=== PATIENT | female | born 1970 | race Caucasian/White ===

== ENCOUNTER 2017-05-04 00:10 | Emergency (ER) | payer MEDICAID, OTHER ==
[~2017-05-04] VITALS: Ht 152.4 cm; Wt 57.6 kg
[~2017-05-04 00:10] MED LIST: HYDROCORTISONE
[2017-05-04 00:21] VITALS: Ht 152.4 cm; Wt 57.6 kg
[2017-05-04] MEDS ORDERED: morphine 2 MG INJ IV STA (02:06)
[2017-05-04] MEDS ORDERED: ONDANSETRON 4 MG INJ IV STA (02:06)
--- NOTE | 2017-05-04 02:54 | RADRPT ---
PROCEDURE: XR Chest. CLINICAL INDICATION: Cough. TECHNIQUE: Single frontal view of the chest. COMPARISON: None. FINDINGS: The cardiomediastinal silhouette is within normal limits. The lungs are clear. No signs of pleural f luid or pneumothorax are seen. The osseous structures and soft tissues are unremarkable. IMPRESSION: No evidence for active cardiopulmonary disease. RPTAT: [facility] Physician Jakob Date Time Electronically viewed and signed by Physician Jakob on 05/04/2017 02:53 RS/
[2017-05-04 02:55] LABS: ABNORMAL IP MESSAGE 1; BASOPHIL # 0.1 10^3/ul (0.0-0.1); BASOPHILS % 0.5 % (0.0-2.0); EOSINOPHILS # 0.1 10^3/ul (0.0-0.5); EOSINOPHILS % 0.9 % (0.0-7.0); HEMATOCRIT 39.6 % (37.0-47.0); HEMOGLOBIN 12.7 g/dl (12.0-16.0); LYMPHOCYTES # 7.9 10^3/ul (0.8-2.9); MEAN CORPUSCULAR HEMOGLOBIN 28.5 pg (29.0-33.0); MEAN CORPUSCULAR HGB CONC 32.1 g/dl (32.0-37.0); MEAN PLATELET VOLUME 9.8 fl (7.4-10.4); MONOCYTE # 1.2 10^3/ul (0.3-0.9); MONOCYTES % 7.5 % (0.0-11.0); NEUTROPHIL # 6.1 10^3/ul (1.6-7.5); NEUTROPHILS % 39.4 % (39.0-77.0); NUCLEATED RED BLOOD CELLS # 0.3 10^3/ul (0.0-0.0); NUCLEATED RED BLOOD CELLS% 1.8 /100WBC (0.0-0.0); PLATELET COUNT 363 10^3/UL (140-415); RED BLOOD COUNT 4.45 10^6/ul (4.20-5.40); RED CELL DISTRIBUTION WIDTH 14.3 % (11.5-14.5); WHITE BLOOD COUNT 15.4 10^3/ul (4.8-10.8)
[2017-05-04 03:05] LABS: POSITIVE DIFF @See below
[2017-05-04 03:17] LABS: ALBUMIN 3.6 g/dl (3.3-4.9); ALBUMIN/GLOBULIN RATIO 1.12; CALCIUM 8.7 mg/dl (8.4-10.2); CREATININE 0.58 mg/dl (0.44-1.00); POTASSIUM 4.2 mmol/L (3.5-5.1); TOTAL PROTEIN 6.8 g/dl (6.1-8.1)
[2017-05-04 03:19] LABS: ADD UMIC NO; UR AMORPHOUS CRYSTAL FEW /HPF (NONE SEEN); UR ASCORBIC ACID NEGATIVE (NEGATIVE); UR BILIRUBIN (Dip) NEGATIVE (NEGATIVE); UR BLOOD (Dip) NEGATIVE (NEGATIVE); UR CLARITY SLIGHTLY CLOUDY (CLEAR); UR COLOR YELLOW (YELLOW); UR GLUCOSE (Dip) NEGATIVE (NEGATIVE); UR KETONES (Dip) NEGATIVE (NEGATIVE); UR LEUKOCYTE ESTERASE (Dip) NEGATIVE Leu/ul (NEGATIVE); UR NITRITE (Dip) NEGATIVE (NEGATIVE); UR RBC 0 /HPF (0-5); UR SPECIFIC GRAVITY (Dip) 1.014 (1.003-1.030); UR TOTAL PROTEIN (Dip) NEGATIVE (NEGATIVE); UR UROBILINOGEN (Dip) NEGATIVE (NEGATIVE)
[2017-05-04] MEDS ORDERED: morphine 2 MG INJ IV ONE (03:30)
--- NOTE | 2017-05-04 04:02 | RADRPT ---
PROCEDURE: CT ABDOMEN/PELVIS WITHOUT CONTRAST CLINICAL INDICATION: 47-year-old female with abdominal pain. TECHNIQUE: The study was performed utilizing a [employer] VCT 64-slice CT scanner. Direct axia l sections were obtained through the abdomen and pelvis without the use of intravenous contrast mate rial. Sagittal and coronal reformations were obtained. One or more of the following dose reduction t echniques were utilized: automated exposure control, adjustment of the mA and/or kV according to pat ient's size and/or the use of iterative reconstruction technique. DICOM images are available. The im ages were reviewed on a PACS workstation. CTD/vol = 7.3 mGy; Total Exam DLP = 379.1 mGy-cm. COMPARISON: CT abdomen/pelvis July 02, 2007. FINDINGS: There is a small subpleural nodule within the lateral basal segment of the right lower lobe on axial image 3-13 measuring 6 x 6 mm with central cavitation. There is minimal bibasilar subsegmental atel ectasis. There is no evidence for significant pleural effusion. The liver has a normal size and co ntour without focal areas of abnormal density. No intrahepatic nor extrahepatic biliary ductal dilat ation is seen. The gallbladder demonstrates no wall thickening nor pericholecystic fluid. No biliary stones are evident. The pancreas is without areas of abnormal attenuation. The spleen is identifie d and has a normal size without abnormal density. The adrenal glands are unremarkable. The right kid chastity is without abnormal density or obstruction. There is a punctate nonobstructing mid left renal ca lculus. There is no evidence for hydroureteronephrosis. The urinary bladder contains urine. There is a minimal umbilical hernia with an opening of 7 x 7 mm with a nonspecific calcification in this region measuring approximately 7 x 5 x 5 mm. There are mildly dilated fluid-filled loops of small chris wel without obstruction. The appendix is difficult to visualize but is without abnormal thickening o r periappendiceal inflammatory changes. The uterus is anteflexed. There is trace pelvic free fluid. Phleboliths are seen within the pelvis. The aortoiliac vessels are without aneurysmal dilatation. Th e osseous structures are intact. IMPRESSION: 1. Mildly dilated fluid-filled loops of small bowel without obstruction. This may represent an ente ritis. Clinical correlation is necessary. 2. Punctate nonobstructing left renal calculus. 3. No CT evidence for appendicitis. 4. Trace pelvic free fluid. 5. Small right lower lobe lateral basal subpleural 6 x 6 mm nodule with central cavitation. .Eliseo Gil MD, Date Time Electronically viewed and signed by .Eliseo Gil MD, on 05/04/2017 04:02 .Darlene/
[2017-05-04] MEDS ORDERED: ONDANSETRON (ODT) 4 MG TAB ODT STA (04:49)
[2017-05-04] MEDS ORDERED: ACET500C5 PO (04:49)
[2017-05-04] MEDS ORDERED: ONDA4TAB14 PO (04:50)
[2017-05-04] MEDS ORDERED: BENZ100C70 PO (04:51)
[2017-05-04 04:59] VITALS: BP 105/62; PULSE 62; RESP 16; TEMP 98.5
--- NOTE | 2017-05-04 08:40 | ERD ---
ER Documentation Chief Complaint Chief Complaint PT IN WITH C/O "R FLANK PAIN AND VOMITING X 3 DAYS" HPI Patient is 47-year-old female with a past medical history of nephrolithiasis, chronic pain, opiate dependence, presents to the ED for concerns of right flank pain 3 days. Patient states that her right flank pain radiates into her right lower abdomen prepubic region. Patient does report seeing blood in her urine yesterday. Patient does admit to dysuria. Patient states today she felt nauseous and proximally 5 episodes of nonbloody, nonbilious vomiting. Patient reports having a fever of 101 earlier today. Patient states that she took Tylenol for symptoms. Patient also reports a productive cough for the last 8 days. Patient is a smoker. Denies any rhinorrhea, sore throat, ear pain. Patient denies any recent travel. ROS All systems reviewed and are negative except as per history of present illness. Medications Home Meds Active Scripts Benzonatate* (Tessalon Perle*) 100 Mg Capsule, 100 MG PO Q8H Y for COUGH, #20 CAP Prov:SARA GONZALEZ PA-C 05/04/17 Ondansetron (Ondansetron Odt) 4 Mg Tab.rapdis, 4 MG PO Q6H Y for NAUSEA AND/OR VOMITING, #10 TAB Prov:SARA GONZALEZ PA-C 05/04/17 Acetaminophen* (Tylophen*) 500 Mg Capsule, 1 CAP PO Q6H Y for PAIN AND OR ELEVATED TEMP, #20 CAP Prov:SARA GONZALEZ PA-C 05/04/17 Reported Medications [Hydrocortisone] No Conflict Check 06/17/11 Allergies Allergies: Coded Allergies: prochlorperazine (Verified Allergy, Unknown, 05/04/17) Uncoded Allergies: PENICILLINS,MORPHINE ,TORADOL,NSAID (Allergy, Unknown, 05/04/17) PMhx/Soc History of Surgery: Yes (LITHOTRIPSY,KIDNEY STENT,ECTOPIC PREG.) Anesthesia Reaction: No Hx Neurological Disorder: No Hx Respiratory Disorders: No Hx Cardiac Disorders: No Hx Psychiatric Problems: No Hx Miscellaneous Medical Probl: No Hx Alcohol Use: No Hx Substance Use: No Hx Tobacco Use: Yes Smoking Status: Current every day smoker Physical Exam Vitals Vital Signs Date Time Temp Pulse Resp B/P Pulse Ox O2 Delivery O2 Flow Rate FiO2 05/04/17 04:59 98.5 62 16 105/62 99 05/04/17 00:21 98.5 105 20 110/89 99 Physical Exam GENERAL: Well-developed, well-nourished female. Appears in no acute distress. HEAD: Normocephalic, atraumatic. EYES: Pupils are equally reactive bilaterally. EOMs grossly intact. No conjunctival erythema. ENT: Moist mucous membranes. No uvula deviation. No kissing tonsils. NECK: Supple. No meningismus. Normal range of motion of the neck. LUNG: Clear to auscultation bilaterally. No rhonchi, wheezing, rales or coarse breath sounds. HEART: Regular rate and rhythm. No murmurs, rubs or gallops. ABDOMEN: No scars, ecchymosis or rashes noted. Soft and nondistended. Tender to palpation over the suprapubic region. Positive bowel sounds in all four quadrants. No rebound tenderness, no guarding. (-) McBurney's point tenderness. R sided CVA tenderness. EXTREMITIES: Equal pulses bilaterally. No peripheral clubbing, cyanosis or edema. No unilateral leg swelling. NEUROLOGIC: Alert and oriented. Moving all four extremities without any difficulty. Normal speech. Steady gait. SKIN: Normal color. Warm and dry. No rashes or lesions. Result Diagram: 05/04/1722905/04/17 023 Results 24 hrs Laboratory Tests Test 05/04/17 02:30 White Blood Count 15.410^3/ul Red Blood Count 4.4510^6/ul Hemoglobin 12.7g/dl Hematocrit 39.6% Mean Corpuscular Volume 89.0fl Mean Corpuscular Hemoglobin 28.5pg Mean Corpuscular Hemoglobin Concent 32.1g/dl Red Cell Distribution Width 14.3% Platelet Count 21353^3/UL Mean Platelet Volume 9.8fl Neutrophils % 39.4% Lymphocytes % 51.0% Monocytes % 7.5% Eosinophils % 0.9% Basophils % 0.5% Nucleated Red Blood Cells % 1.8/100WBC Neutrophils # 6.110^3/ul Lymphocytes # 7.910^3/ul Monocytes # 1.210^3/ul Eosinophils # 0.110^3/ul Basophils # 0.110^3/ul Nucleated Red Blood Cells # 0.310^3/ul Urine Color YELLOW Urine Clarity SLIGHTLY CLOUDY Urine pH 8.0 Urine Specific [place] 1.014 Urine Ketones NEGATIVEmg/dL Urine Nitrite NEGATIVEmg/dL Urine Bilirubin NEGATIVEmg/dL Urine Urobilinogen NEGATIVEmg/dL Urine Leukocyte Esterase NEGATIVELeu/ul Urine Microscopic RBC 0/HPF Urine Microscopic WBC 0/HPF Urine Amorphous Crystals FEW/HPF Urine Hemoglobin NEGATIVEmg/dL Urine Glucose NEGATIVEmg/dL Urine Total Protein NEGATIVEmg/dl Sodium Level 140mmol/L Potassium Level 4.2mmol/L Chloride Level 109mmol/L Carbon Dioxide Level 23mmol/L Anion Gap 12 Blood Urea Nitrogen 16mg/dl Creatinine 0.58mg/dl Glucose Level 83mg/dl Calcium Level 8.7mg/dl Total Bilirubin 0.0mg/dl Direct Bilirubin 0.00mg/dl Indirect Bilirubin 0.0mg/dl Aspartate Amino Transf (AST/SGOT) 41IU/L Alanine Aminotransferase (ALT/SGPT) 51IU/L Alkaline Phosphatase 95IU/L Total Protein 6.8g/dl Albumin 3.6g/dl Globulin 3.20g/dl Albumin/Globulin Ratio 1.12 Lipase 266U/L Current Medications Medications (Trade) Dose Ordered Sig/Maximus Route PRN Reason Start Time Stop Time Status Last Admin Dose Admin Morphine Sulfate (morphine) 2 mg ONCE STAT IV 05/04/17 02:06 05/04/17 02:08 DC 05/04/17 02:35 Ondansetron HCl (Zofran Inj) 4 mg ONCE STAT IV 05/04/17 02:06 05/04/17 02:08 DC 05/04/17 02:35 Morphine Sulfate (morphine) 2 mg ONCE ONCE IV 05/04/17 03:30 05/04/17 03:31 DC 05/04/17 03:26 Ondansetron HCl (Zofran Odt) 4 mg ONCE STAT ODT 05/04/17 04:49 05/04/17 04:55 DC Procedures/MDM ED COURSE: The patient was stable throughout ED course. I kept the patient and/or family informed of laboratory and diagnostic imaging results throughout the ED course. DIAGNOSTIC IMAGING: Read by radiologist. Patient: SYLVIA OCHOA : 1970 Age: 47 Sex: F MR #: [id number] DOS: 05/04/17 0206 Ordering MD: SARA GONZALEZ PA-C Location: [facility] Room/Bed: PROCEDURE: CT ABDOMEN/PELVIS WITHOUT CONTRAST CLINICAL INDICATION: 47-year-old female with abdominal pain. TECHNIQUE: The study was performed utilizing a [employer] VCT 64-slice CT scanner. Direct axial sections were obtained through the abdomen and pelvis without the use of intravenous contrast material. Sagittal and coronal reformations were obtained. One or more of the following dose reduction techniques were utilized: automated exposure control, adjustment of the mA and/ or kV according to patient's size and/or the use of iterative reconstruction technique. DICOM images are available. The images were reviewed on a PACS workstation. CTD/vol = 7.3 mGy; Total Exam DLP = 379.1 mGy-cm. COMPARISON: CT abdomen/pelvis July 02, 2007. FINDINGS: There is a small subpleural nodule within the lateral basal segment of the right lower lobe on axial image 3-13 measuring 6 x 6 mm with central cavitation. There is minimal bibasilar subsegmental atelectasis. There is no evidence for significant pleural effusion. The liver has a normal size and contour without focal areas of abnormal density. No intrahepatic nor extrahepatic biliary ductal dilatation is seen. The gallbladder demonstrates no wall thickening nor pericholecystic fluid. No biliary stones are evident. The pancreas is without areas of abnormal attenuation. The spleen is identified and has a normal size without abnormal density. The adrenal glands are unremarkable. The right kidney is without abnormal density or obstruction. There is a punctate nonobstructing mid left renal calculus. There is no evidence for hydroureteronephrosis. The urinary bladder contains urine. There is a minimal umbilical hernia with an opening of 7 x 7 mm with a nonspecific calcification in this region measuring approximately 7 x 5 x 5 mm. There are mildly dilated fluid- filled loops of small bowel without obstruction. The appendix is difficult to visualize but is without abnormal thickening or periappendiceal inflammatory changes. The uterus is anteflexed. There is trace pelvic free fluid. Phleboliths are seen within the pelvis. The aortoiliac vessels are without aneurysmal dilatation. The osseous structures are intact. IMPRESSION: 1. Mildly dilated fluid-filled loops of small bowel without obstruction. This may represent an enteritis. Clinical correlation is necessary. 2. Punctate nonobstructing left renal calculus. 3. No CT evidence for appendicitis. 4. Trace pelvic free fluid. 5. Small right lower lobe lateral basal subpleural 6 x 6 mm nodule with central cavitation. .Eliseo Gil MD, Date Time Electronically viewed and signed by .Eliseo Gil MD, on 05/04/2017 04:02 .M/ CC: SARA GONZALEZ PA-C Patient: SYLVIA OCHOA : 1970 Age: 47 Sex: F MR #: [id number] DOS: 05/04/17 0206 Ordering MD: SARA GONZALEZ PA-C Location: [facility] Room/Bed: PROCEDURE: XR Chest. CLINICAL INDICATION: Cough. TECHNIQUE: Single frontal view of the chest. COMPARISON: None. FINDINGS: The cardiomediastinal silhouette is within normal limits. The lungs are clear. No signs of pleural fluid or pneumothorax are seen. The osseous structures and soft tissues are unremarkable. IMPRESSION: No evidence for active cardiopulmonary disease. RPTAT: [facility] Physician Jakob Date Time Electronically viewed and signed by Physician Jakob on 05/04/2017 02:53 RS/ CC: SARA GONZALEZ PA-C MEDICATIONS GIVEN: IV fluids, Zofran, morphine. Patient tolerated medication well with no adverse reactions MEDICAL DECISION MAKING: This is a 47-year-old female with history of nephrolithiasis, chronic pain, opiate dependence, presents to the ED for concerns of right-sided flank pain and a cough. Patient describes having right-sided flank pain for last 3 days. Patient reports vomiting which started today. She has had a productive cough for the last 8 days. Vital signs were reviewed. Patient was afebrile. Patient was not hypoxic. Blood work was obtained. Patient was noted to have a white count of 15.4. No evidence of severe anemia. CMP showed no evidence of electrolyte abnormalities, severe acidosis, alkalosis , renal failure, or liver disease. Lipase showed no evidence of acute pancreatitis. UA showed no evidence of acute infection or hematuria. Urine test was negative. Chest x-ray was unremarkable. CT abdomen and pelvis showed 1. Mildly dilated fluid-filled loops of small bowel without obstruction. This may represent an enteritis. Clinical correlation is necessary. 2. Punctate nonobstructing left renal calculus. 3. No CT evidence for appendicitis. 4. Trace pelvic free fluid. 5. Small right lower lobe lateral basal subpleural 6 x 6 mm nodule with central cavitation. She was given IV fluids, Zofran and morphine. Patient repeatedly asking for additional doses of narcotics immediately after receiving the medication.. Patient was noted to be fast asleep on numerous occasions by myself and nursing staff. I explained to the patient that I am unable to provide her with additional doses given her history of chronic pain and opiate dependence. At this time, patient presentation is most consistent with enteritis and cough. Discussed case with my supervising physician, Dr. Laguerre, who agreed that patient did not require antibiotics at this time. Low suspicion for pneumonia, pneumothorax, nephrolithiasis, septic stone, UTI, pyelonephritis, appendicitis, SBO, bowel perforation, pancreatitis. I discussed the patient's findings of nodule in the right lower lobe with her. Patient was advised to follow-up with her primary care physician for further management of this nodule. Smoking cessation discussed. I reviewed the patient's MOISE report which shows patient went to [facility] 04[facility] for similar concerns. PRESCRIPTIONS: Tylenol, Zofran DISCHARGE: At this time, patient is stable for discharge and outpatient management. Patient was given a copy of all imaging studies and blood work obtained today. I have instructed the patient to follow-up with his/her primary care physician in 1-2 days. If symptoms persist, patient may need to see a specialist for further examinations and testing. I have instructed the patient to promptly return to the ER at any time for any new or worsening symptoms including increased increased pain, fever, nausea, vomiting, urinary changes or weakness. The patient and/or family expressed understanding of and agreement with this plan. All questions were answered. Home care instructions were provided. Disclaimer: Inadvertent spelling and grammatical errors are likely due to EHR/ dictation software use and do not reflect on the overall quality of patient care. Also, please note that the electronic time recorded on this note does not necessarily reflect the actual time of the patient encounter. Departure Diagnosis: Primary Impression: Enteritis Additional Impression: Cough Condition: Stable Patient Instructions: Cough, Chronic, Uncertain Cause, (Adult), Gastroenteritis , Viral (6Y-Adult) Referrals: [facility] YOU HAVE RECEIVED A MEDICAL SCREENING EXAM AND THE RESULTS INDICATE THAT YOU DO NOT HAVE A CONDITION THAT REQUIRES URGENT TREATMENT IN THE EMERGENCY DEPARTMENT. FURTHER EVALUATION AND TREATMENT OF YOUR CONDITION CAN WAIT UNTIL YOU ARE SEEN IN YOUR DOCTORS OFFICE WITHIN THE NEXT 1-2 DAYS. IT IS YOUR RESPONSIBILITY TO MAKE AN APPOINTMENT FOR FOLOW-UP CARE. IF YOU HAVE A PRIMARY DOCTOR --you should call your primary doctor and schedule an appointment IF YOU DO NOT HAVE A PRIMARY DOCTOR YOU CAN CALL OUR PHYSICIAN REFERRAL HOTLINE AT IF YOU CAN NOT AFFORD TO SEE A PHYSICIAN YOU CAN CHOSE FROM THE FOLLOWING [facility] [address] [facility]. [facility] [address] [facility] [facility] [address] [facility] [facility] [address] [facility] [facility] [address] [facility]. [facility] [address] [facility]. [facility] YOU HAVE RECEIVED A MEDICAL SCREENING EXAM AND THE RESULTS INDICATE THAT YOU DO NOT HAVE A CONDITION THAT REQUIRES URGENT TREATMENT IN THE EMERGENCY DEPARTMENT. FURTHER EVALUATION AND TREATMENT OF YOUR CONDITION CAN WAIT UNTIL YOU ARE SEEN IN YOUR DOCTORS OFFICE WITHIN THE NEXT 1-2 DAYS. IT IS YOUR RESPONSIBILITY TO MAKE AN APPOINTMENT FOR FOLOW-UP CARE. IF YOU HAVE A PRIMARY DOCTOR --you should call your primary doctor and schedule and appointment IF YOU DO NOT HAVE A PRIMARY DOCTOR YOU CAN CALL OUR PHYSICIAN REFERRAL HOTLINE AT . IF YOU CAN NOT AFFORD TO SEE A PHYSICIAN YOU CAN CHOSE FROM THE FOLLOWING [facility] INSTITUTIONS: [facility] [address] [place] [address] [facility] [address] [place] [address] [facility] [address] [place] [address] Additional Instructions: Call your primary care doctor TOMORROW for an appointment during the next 1-2 days.See the doctor sooner or return here if your condition worsens before your appointment time. SARA GONZALEZ PA-C May 04, 2017 08:28
== END 2017-05-04 05:00 | disposition home or self-care (01) ==
LOC: FTE 00:10
DX: K52.9 Noninfective gastroenteritis and colitis, unspecified (principal); R05 Cough; F17.210 Nicotine dependence, cigarettes, uncomplicated
CPT/HCPCS: 36415; 71010; 74176; 80053; 81001; 83690; 85025; 96374; 96375; 96376; J2270; J2405; Z7502; 81003

== ENCOUNTER 2018-02-15 01:46 | Emergency (ER) | END 2018-02-15 04:16 | disposition left against medical advice (07) ==

== ENCOUNTER 2018-12-05 22:20 | Emergency (ER) | payer MEDICAID ==
[~2018-12-05] VITALS: Ht 182.9 cm; Wt 48.7 kg
[~2018-12-05 22:20] MED LIST changes: +ACET500C5 PO; +BENZ-6 PO; +CLIN300C10 PO; +ONDA4TAB14 PO; +TRAM50TA2 PO
[2018-12-05 22:26] VITALS: Ht 182.9 cm; Wt 48.7 kg
[2018-12-05] MEDS ORDERED: SOD CHLORIDE 0.9% 1,000 ML IV STA (22:58)
[2018-12-05] MEDS ORDERED: LIDOCAINE 1% (MDV) 20 ML INJ INJ ONE (23:00)
[2018-12-05] MEDS ORDERED: ONDANSETRON 4 MG INJ IV ONE (23:00)
[2018-12-05] MEDS ORDERED: morphine 4 MG/ML VIAL IV ONE (23:00)
[2018-12-05] MEDS ORDERED: DIPHTH/TET/ACEL PERTUSS (ADULT) 0.5 ML VIAL IM* ONE (23:00)
[2018-12-05] MEDS ORDERED: HYDROmorphONE 0.5 MG/0.5 ML SYG IV STA (23:03)
[2018-12-06] MEDS ORDERED: LORAZEPAM 2 MG INJ IV ONE
[2018-12-06] MEDS ORDERED: IOHEXOL 300MG/ML 150 ML BTL ONE (02:12)
[2018-12-06] MEDS ORDERED: SOD CHLORIDE 0.9% 100 ML ONE (02:12)
[2018-12-06 02:17] VITALS: BP 125/78; PULSE 88; RESP 16
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
== END 2018-12-06 03:41 | disposition left against medical advice (07) ==
LOC: E/R 22:20
DX: S02.2XXA Fracture of nasal bones, initial encounter for closed fracture (principal); S01.511A Laceration without foreign body of lip, initial encounter; F17.210 Nicotine dependence, cigarettes, uncomplicated; R04.0 Epistaxis; R07.81 Pleurodynia; Y04.8XXA Assault by other bodily force, initial encounter; Y99.9 Unspecified external cause status; Z76.5 Malingerer [conscious simulation]; Z23 Encounter for immunization
CPT/HCPCS: 36415; 70450; 70486; 71260; 74177; 80053; 83690; 85025; 85610; 85730; 90471; 90715; 96374; 96375; J1170; J2060; J2405; J7030; Q9967; Z7502; Z7610

== ENCOUNTER 2019-02-12 15:34 | Emergency (ER) | payer MEDICAID, OTHER ==
[~2019-02-12] VITALS: Ht 152.4 cm; Wt 49.8 kg
[~2019-02-12 15:34] MED LIST changes: +METH500T PO
[2019-02-12 16:03] VITALS: Ht 152.4 cm; Wt 49.8 kg
[2019-02-12] MEDS ORDERED: ACETAMINOPHEN 325 MG TAB PO ONE (17:00)
[2019-02-12] MEDS ORDERED: METHOCARBAMOL 750 MG TAB PO ONE (17:00)
[2019-02-12 18:50] VITALS: BP 117/75; PULSE 88; RESP 17
== END 2019-02-12 18:50 | disposition home or self-care (01) ==
LOC: FTE 15:34
DX: M47.892 Other spondylosis, cervical region (principal); M25.512 Pain in left shoulder; M54.5 Low back pain; Z87.891 Personal history of nicotine dependence
CPT/HCPCS: 72040; 72100; 73030; 81025; Z7502; Z7610